=== PATIENT | male | born 1960 | race Caucasian/White ===

== ENCOUNTER 2021-04-07 21:45 | Emergency (ER) | payer OTHER, SELFPAY ==
[2021-04-07 21:47] VITALS: BP 123/77; PULSE 77; RESP 18; TEMP 36.3; O2SAT 96; BMI 31.4
[2021-04-07 21:51] VITALS: O2SAT 97
--- NOTE | 2021-04-07 22:20 | RAD_ITS ---
STUDY: X-RAY - UNILATERAL RIBS ( LEFT ) WITH CHEST REASON FOR EXAM: Male, 60 years old. Trauma/pain TECHNIQUE - RIBS: 4 view(s) of the ribs. TECHNIQUE - CHEST: 1 view COMPARISON: None. FINDINGS - RIBS: Normal visualized ribs without a demonstrated fracture. FINDINGS - CHEST: The lungs are clear and expanded. There is no demonstrated pleural abnormality. Normal size heart. Normal mediastinum and thelma. Normal visualized pulmonary arteries. Normal visualized aortic arch and descending thoracic aorta. Normal visualized thoracic spine. Normal visualized ribs, clavicles, and shoulders. There is no demonstrated abnormality of the visualized soft tissue structures of the upper abdomen. RAD/Ribs Uni Min 3V w/PA Chest IMPRESSION: RIBS: Normal x-ray examination of the ribs. CHEST: Normal x-ray examination of the chest. Electronically Signed: Sheyla Smith MD at 23:36 EDT , Service support ,
--- NOTE | 2021-04-07 22:21 | CT_ITS ---
STUDY: CT CERVICAL SPINE WITHOUT CONTRAST REASON FOR EXAM: Male, 60 years old. Injury/Pain RADIATION DOSAGE (If Supplied By Facility): CTDIvol = ( 23.32 ) mGy, DLP = ( 531.48 ) mGycm TECHNIQUE: High resolution transaxial imaging was performed without contrast material. Sagittal and coronal images were reconstructed. Individualized dose optimization techniques were used for this CT. COMPARISON: None FINDINGS: Normal craniovertebral junction. Normal anterior atlantoaxial articulation. Normal odontoid process. Normal cervical lordosis. Normal vertebral bodies and posterior osseous elements. C2-3: Normal endplates. Normal disc height and morphology. Normal central canal and intervertebral neuroforamina. C3-4: Mild disc narrowing and uncovertebral arthrosis. Negative for central stenosis. Mild bilateral foraminal narrowing. C4-5: Degenerative disc narrowing and uncovertebral arthrosis without central stenosis. Bilateral mild foraminal narrowing. C5-6: Degenerative disc narrowing and uncovertebral arthrosis. Negative for central stenosis. Mild foraminal narrowing on the left and moderate foraminal narrowing on the right. C6-7: Mild disc narrowing and uncovertebral arthrosis. Negative for central or foraminal narrowing. C7-T1: Normal endplates. Normal disc height and morphology. Normal central canal and intervertebral neuroforamina. Normal visualized soft tissue structures. CT/Spine Cervical without Contras IMPRESSION: Normal alignment of the cervical spine without acute fracture deformity. Degenerative disc and joint changes as stated above. Electronically Signed: Sheyla Smith MD at 23:06 EDT , Service support ,
--- NOTE | 2021-04-07 22:21 | RAD_ITS ---
STUDY: X-RAY - LUMBAR SPINE REASON FOR EXAM: Male, 60 years old. Injury/Pain TECHNIQUE: 3 view(s) of the lumbar spine were obtained. COMPARISON: None FINDINGS: Normal lumbar lordosis. There is no substantial scoliosis. There is a normal alignment of the vertebrae. Normal vertebral bodies and endplates. Mild degenerative disc and spondylitic endplate changes. There is no demonstrated fracture. The soft tissue structures are unremarkable. RAD/Lumbar Spine 2 or 3 Views IMPRESSION: Normal alignment of the lumbar spine without acute fracture deformity. Mild generalized degenerative disc and spondylitic endplate changes. Electronically Signed: Sheyla Smith MD at 23:32 EDT , Service support ,
--- NOTE | 2021-04-07 22:21 | CT_ITS ---
STUDY: CT BRAIN WITHOUT CONTRAST REASON FOR EXAM: Male, 60 years old. Injury/Pain RADIATION DOSAGE (If Supplied By Facility): CTDIvol = ( 44.99 ) mGy, DLP = ( 812.98 ) mGycm TECHNIQUE: Transaxial CT imaging of the brain was performed without administration of intravenous contrast material. Individualized dose optimization techniques were used for this CT. COMPARISON: No relevant priors. FINDINGS: Normal soft tissue structures. Normal calvarium. Normal size ventricles and extra-axial spaces for the patient''s age. Normal white matter tracts of the cerebral hemispheres. Normal basal ganglia and thalami. Normal brainstem. Normal cerebellum. There is no intracranial hemorrhage. There are no findings of an acute ischemic infarction. Mild to moderate mucosal thickening at the bases of the maxillary sinuses. CT/Brain/Head without Contrast IMPRESSION: Normal unenhanced CT scan of the brain. Negative for hemorrhage, hematoma or extra-axial fluid collection. Mild to moderate mucosal thickening at the bases of the maxillary sinuses. Electronically Signed: Sheyla Smith MD at 22:47 EDT , Service support ,
[2021-04-07] MEDS: Diphth,Pertuss(Acell),Tet Vac 0.5 ML Vial IM (22:59)
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
[2021-04-08 00:54] VITALS: BP 118/70
== END 2021-04-08 00:55 | disposition home or self-care (01) ==
PROVIDERS: Emergency Provider Emergency Medicine; PCP Family Medicine
DX: S06.0X9A Concussion with loss of consciousness of unspecified duration, initial encounter (principal); S16.1XXA Strain of muscle, fascia and tendon at neck level, initial encounter; S20.212A Contusion of left front wall of thorax, initial encounter; S00.01XA Abrasion of scalp, initial encounter; S30.0XXA Contusion of lower back and pelvis, initial encounter; S39.012A Strain of muscle, fascia and tendon of lower back, initial encounter; V80.42XA Occupant of animal-drawn vehicle injured in collision with car, pick-up truck, van, heavy transport vehicle or bus, initial encounter; Y93.9 Activity, unspecified; Y92.9 Unspecified place or not applicable
CPT/HCPCS: 70450; 71101; 72100; 72125; 90715; 99284